=== PATIENT | male | born 1950 | race Two or more races ===

== ENCOUNTER 2017-08-17 18:20 | Inpatient (IN) | payer MEDICAID ==
[2017-08-17 23:50] LABS: ADD MAN DIFF? NO
[2017-08-17 23:51] LABS: BASOPHILS % 0.5 % (0.0-2.0); EOSINOPHILS # 0.4 10^3/ul (0.0-0.5); EOSINOPHILS % 6.3 % (0.0-7.0); HEMOGLOBIN 17.6 g/dl (14.0-18.0); LYMPHOCYTES # 3.3 10^3/ul (0.8-2.9); LYMPHOCYTES % 51.2 % (15.0-51.0); MEAN CORPUSCULAR HEMOGLOBIN 28.3 pg (29.0-33.0); MEAN CORPUSCULAR HGB CONC 35.2 g/dl (32.0-37.0); MEAN CORPUSCULAR VOLUME 80.3 fl (82.0-101.0); MEAN PLATELET VOLUME 9.6 fl (7.4-10.4); MONOCYTE # 0.5 10^3/ul (0.3-0.9); NEUTROPHIL # 2.2 10^3/ul (1.6-7.5); NEUTROPHILS % 33.5 % (39.0-77.0); PLATELET COUNT 173 10^3/UL (140-415); RED BLOOD COUNT 6.23 10^6/ul (4.70-6.10); RED CELL DISTRIBUTION WIDTH 13.4 % (11.5-14.5)
[2017-08-17 23:51] LABS: WHITE BLOOD COUNT 6.5 10^3/ul (4.8-10.8)
[2017-08-18 00:16] LABS: ANION GAP 11 (8-16); BLOOD UREA NITROGEN 26 mg/dl (7-20); CALCIUM 9.6 mg/dl (8.4-10.2); CARBON DIOXIDE 33 mmol/L (21-31); CHLORIDE 98 mmol/L (97-110); CREATININE 1.08 mg/dl (0.61-1.24); GLUCOSE 98 mg/dl (70-220); SODIUM 139 mmol/L (135-144)
[2017-08-18] MEDS ORDERED: ONDANSETRON 4 MG TAB PO (02:00)
[2017-08-18] MEDS ORDERED: NACL 0.9% 3 ML SYG IV (02:00)
[2017-08-18] MEDS ORDERED: ACETAMINOPHEN 325 MG TAB PO (02:00)
[2017-08-18] MEDS: ASPIRIN 325 MG TAB PO (02:00)
[2017-08-18] MEDS: NITROGLYCERIN 2% 1 GM OINT PKT TD (02:00)
[2017-08-18] MEDS ORDERED: morphine 2 MG INJ IV (02:00)
[2017-08-18] MEDS: POTASSIUM CHLORIDE (SR) 20 MEQ TAB PO ×3 (02:01→12:03)
[2017-08-18 07:55] LABS: HEMOGLOBIN A1C 5.4 % (0-5.9)
[2017-08-18 08:02] LABS: MAGNESIUM 1.7 mg/dl (1.7-2.5)
[2017-08-18 08:02] LABS: CHOL/HDL RATIO 5.1 RATIO; CHOLESTEROL 171 mg/dl (100-200); HDL CHOLESTEROL 33 mg/dl (30-78); LDL CHOLESTEROL,CALCULATED 88 mg/dl; TRIGLYCERIDES 248 mg/dl (0-149)
[2017-08-18 08:03] LABS: CREATINE KINASE 106 IU/L (23-200)
[2017-08-18 08:16] LABS: CK INDEX 2.7; CK-MB 2.82 ng/ml (0.0-2.4); TROPONIN-I 0.014 ng/ml (0.00-0.12)
[2017-08-18 08:36] LABS: THYROID STIMULATING HORMONE 0.648 MIU/L (0.465-4.680)
[2017-08-18] MEDS: CHLORTHALIDONE 25 MG TAB PO (09:02)
[2017-08-18] MEDS: LOSARTAN 50 MG TAB PO (09:02)
[2017-08-18] MEDS: METOPROLOL 25 MG TAB PO ×2 (09:03→20:12)
[2017-08-18] MEDS: ASPIRIN (EC) 81 MG TAB PO (09:04)
[2017-08-18 11:15] LABS: ALANINE AMINOTRANSFERASE 42 IU/L (13-69); ALBUMIN 3.7 g/dl (3.3-4.9); ALBUMIN/GLOBULIN RATIO 1.37; ALKALINE PHOSPHATASE 68 IU/L (42-121); ANION GAP 12 (8-16); ASPARTATE AMINO TRANSFERASE 33 IU/L (15-46); BILIRUBIN,INDIRECT 1.1 mg/dl (0-1.1); BILIRUBIN,TOTAL 1.1 mg/dl (0.2-1.3); BLOOD UREA NITROGEN 25 mg/dl (7-20); CALCIUM 9.2 mg/dl (8.4-10.2); CARBON DIOXIDE 28 mmol/L (21-31); CHLORIDE 104 mmol/L (97-110); CREATININE 0.99 mg/dl (0.61-1.24); GLUCOSE 113 mg/dl (70-220); POTASSIUM 3.4 mmol/L (3.5-5.1); SODIUM 141 mmol/L (135-144); TOTAL PROTEIN 6.4 g/dl (6.1-8.1)
[2017-08-18] MEDS ORDERED: SOD CHLORIDE 0.9% 1,000 ML IV (12:00)
[2017-08-18] MEDS: DEXTROSE 5%-0.9% NACL 1,000 ML IV (12:13)
[2017-08-18 12:35] LABS: CREATINE KINASE 106 IU/L (23-200)
[2017-08-18 12:47] LABS: CK INDEX 2.5
[2017-08-18 12:49] LABS: CK-MB 2.66 ng/ml (0.0-2.4); TROPONIN-I < 0.012 ng/ml (0.00-0.12)
[2017-08-18] MEDS: REGADENOSON 0.4 MG/5 ML SYG (15:27)
[2017-08-18] MEDS: MAGNESIUM SULFATE 2 GM/50 ML 50 ML IVPB (17:47)
== END 2017-08-18 20:24 | disposition home or self-care (01) | DRG 313 ==
LOC: MS3 08-18 01:56 → E/R 18:20
DX: R07.9 Chest pain, unspecified (principal); E83.42 Hypomagnesemia; I10 Essential (primary) hypertension; E87.6 Hypokalemia; E78.5 Hyperlipidemia, unspecified; Z95.0 Presence of cardiac pacemaker
CPT/HCPCS: 36415; 71045; 78452; 80048; 80053; 80061; 82550; 82553; 83036; 83735; 84443; 84484; 85025; 93005; 93017; 99285-25

== ENCOUNTER 2017-10-22 11:43 | Emergency (ER) | payer MEDICAID ==
[2017-10-22 14:04] LABS: ADD MAN DIFF? NO
[2017-10-22] MEDS: KETOROLAC 15 MG INJ IV (14:05)
[2017-10-22 14:06] LABS: WHITE BLOOD COUNT 11.3 10^3/ul (4.8-10.8)
[2017-10-22 14:06] LABS: BASOPHILS % 0.4 % (0.0-2.0); EOSINOPHILS # 0.7 10^3/ul (0.0-0.5); EOSINOPHILS % 6.5 % (0.0-7.0); HEMATOCRIT 51.6 % (42.0-52.0); HEMOGLOBIN 17.9 g/dl (14.0-18.0); LYMPHOCYTES % 17.6 % (15.0-51.0); MEAN CORPUSCULAR HEMOGLOBIN 29.1 pg (29.0-33.0); MEAN CORPUSCULAR HGB CONC 34.7 g/dl (32.0-37.0); MEAN CORPUSCULAR VOLUME 83.9 fl (82.0-101.0); MEAN PLATELET VOLUME 8.9 fl (7.4-10.4); MONOCYTE # 0.9 10^3/ul (0.3-0.9); MONOCYTES % 7.9 % (0.0-11.0); NEUTROPHIL # 7.6 10^3/ul (1.6-7.5); PLATELET COUNT 147 10^3/UL (140-415); RED BLOOD COUNT 6.15 10^6/ul (4.70-6.10); RED CELL DISTRIBUTION WIDTH 13.1 % (11.5-14.5)
[2017-10-22] MEDS: SOD CHLORIDE 0.9% 1,000 ML IV (14:06)
[2017-10-22 14:25] LABS: ALANINE AMINOTRANSFERASE 34 IU/L (13-69); ALBUMIN 4.1 g/dl (3.3-4.9); ALBUMIN/GLOBULIN RATIO 1.17; ALKALINE PHOSPHATASE 77 IU/L (42-121); ANION GAP 15 (8-16); ASPARTATE AMINO TRANSFERASE 29 IU/L (15-46); BILIRUBIN,INDIRECT 1.4 mg/dl (0-1.1); BILIRUBIN,TOTAL 1.4 mg/dl (0.2-1.3); BLOOD UREA NITROGEN 24 mg/dl (7-20); CALCIUM 9.7 mg/dl (8.4-10.2); CARBON DIOXIDE 30 mmol/L (21-31); CHLORIDE 104 mmol/L (97-110); CREATININE 1.29 mg/dl (0.61-1.24); GLUCOSE 99 mg/dl (70-220); LIPASE 95 U/L (23-300); POTASSIUM 4.4 mmol/L (3.5-5.1); SODIUM 145 mmol/L (135-144); TOTAL PROTEIN 7.6 g/dl (6.1-8.1)
[2017-10-22 14:38] LABS: TROPONIN-I < 0.012 ng/ml (0.00-0.12)
== END 2017-10-22 16:21 | disposition home or self-care (01) ==
LOC: E/R 11:43
DX: M54.2 Cervicalgia (principal); M25.512 Pain in left shoulder; M25.511 Pain in right shoulder; M79.641 Pain in right hand; M79.642 Pain in left hand; M79.671 Pain in right foot; M79.672 Pain in left foot; I10 Essential (primary) hypertension; Z79.82 Long term (current) use of aspirin
CPT/HCPCS: 36415; 71045; 80053; 83690; 84484; 85025; 93005; 96374; 99285-25

== ENCOUNTER 2017-10-24 16:12 | Inpatient (IN) | payer MEDICAID ==
[2017-10-24 16:53] LABS: ADD MAN DIFF? NO
[2017-10-24] MEDS: SODIUM CHLORIDE 0.9% 1L BAG IV* (16:53)
[2017-10-24] MEDS: PIPER-TAZO 3.375 GM IV (PMX) 100 ML IVPB (16:54)
[2017-10-24 16:55] LABS: WHITE BLOOD COUNT 8.2 10^3/ul (4.8-10.8)
[2017-10-24 16:55] LABS: BASOPHILS % 0.4 % (0.0-2.0); EOSINOPHILS # 0.2 10^3/ul (0.0-0.5); EOSINOPHILS % 2.2 % (0.0-7.0); HEMATOCRIT 51.4 % (42.0-52.0); LYMPHOCYTES # 1.4 10^3/ul (0.8-2.9); LYMPHOCYTES % 16.6 % (15.0-51.0); MEAN CORPUSCULAR HEMOGLOBIN 28.9 pg (29.0-33.0); MEAN CORPUSCULAR VOLUME 82.5 fl (82.0-101.0); MEAN PLATELET VOLUME 8.9 fl (7.4-10.4); MONOCYTE # 0.8 10^3/ul (0.3-0.9); NEUTROPHIL # 5.8 10^3/ul (1.6-7.5); PLATELET COUNT 149 10^3/UL (140-415); RED BLOOD COUNT 6.23 10^6/ul (4.70-6.10); RED CELL DISTRIBUTION WIDTH 12.7 % (11.5-14.5)
[2017-10-24 17:10] LABS: INR 0.94; PROTIME 12.7 Sec (11.9-14.9)
[2017-10-24 17:11] LABS: PARTIAL THROMBOPLASTIN TIME 25.6 Sec (25.0-35.0)
[2017-10-24 17:19] LABS: ALANINE AMINOTRANSFERASE 48 IU/L (13-69); ALBUMIN 4.5 g/dl (3.3-4.9); ALBUMIN/GLOBULIN RATIO 1.09; ALKALINE PHOSPHATASE 88 IU/L (42-121); ANION GAP 17 (8-16); ASPARTATE AMINO TRANSFERASE 41 IU/L (15-46); BILIRUBIN,INDIRECT 0.9 mg/dl (0-1.1); BILIRUBIN,TOTAL 0.9 mg/dl (0.2-1.3); BLOOD UREA NITROGEN 23 mg/dl (7-20); CALCIUM 9.7 mg/dl (8.4-10.2); CARBON DIOXIDE 29 mmol/L (21-31); CHLORIDE 99 mmol/L (97-110); CREATININE 1.18 mg/dl (0.61-1.24); GLUCOSE 99 mg/dl (70-220); POTASSIUM 4.2 mmol/L (3.5-5.1); SODIUM 141 mmol/L (135-144); TOTAL PROTEIN 8.6 g/dl (6.1-8.1)
[2017-10-24 17:30] LABS: TROPONIN-I < 0.012 ng/ml (0.00-0.12)
[2017-10-24] MEDS: LABETALOL HCL 20MG INJ IV (17:43)
[2017-10-24] MEDS: ACETAMINOPHEN 500 MG TAB PO (17:43)
[2017-10-24] MEDS: VANCOMYCIN 1 GM (PMX) 250 ML IVPB (17:44)
[2017-10-24 18:06] LABS: ADD UMIC YES; UR ASCORBIC ACID NEGATIVE (NEGATIVE); UR BACTERIA MANY /HPF (NONE SEEN); UR BILIRUBIN (Dip) NEGATIVE (NEGATIVE); UR BLOOD (Dip) 2+ mg/dL (NEGATIVE); UR CLARITY CLEAR (CLEAR); UR COLOR YELLOW (YELLOW); UR GLUCOSE (Dip) NEGATIVE (NEGATIVE); UR KETONES (Dip) NEGATIVE (NEGATIVE); UR LEUKOCYTE ESTERASE (Dip) 3+ Leu/ul (NEGATIVE); UR NITRITE (Dip) NEGATIVE (NEGATIVE); UR RBC 12 /HPF (0-5); UR TOTAL PROTEIN (Dip) NEGATIVE (NEGATIVE); UR UROBILINOGEN (Dip) NEGATIVE (NEGATIVE); UR WBC 93 /HPF (0-5)
[2017-10-24 18:07] LABS: LACTIC ACID 1.4 mmol/L (0.5-2.0)
[2017-10-24 19:31] LABS: LACTIC ACID 2.3 mmol/L (0.5-2.0)
[2017-10-24] MEDS ORDERED: NACL 0.9% 3 ML SYG IV (21:30)
[2017-10-24] MEDS ORDERED: BISACODYL (EC) 5 MG TAB PO (21:30)
[2017-10-24] MEDS ORDERED: DOCUSATE SODIUM 100 MG CAP PO (21:30)
[2017-10-24] MEDS ORDERED: ONDANSETRON 4 MG INJ IV (21:30)
[2017-10-24 21:56] LABS: LACTIC ACID 1.7 mmol/L (0.5-2.0)
[2017-10-25 01:51] LABS: LACTIC ACID 1.2 mmol/L (0.5-2.0)
[2017-10-25] MEDS: ACETAMINOPHEN 325 MG TAB PO (03:57)
[2017-10-25] MEDS: PIPER-TAZO 3.375 GM IV (PMX) 100 ML IVPB ×5 (05:46→23:24)
[2017-10-25 06:07] LABS: ADD MAN DIFF? NO
[2017-10-25 06:15] LABS: BASOPHILS % 0.1 % (0.0-2.0); EOSINOPHILS # 0.2 10^3/ul (0.0-0.5); EOSINOPHILS % 2.2 % (0.0-7.0); HEMATOCRIT 46.7 % (42.0-52.0); HEMOGLOBIN 16.2 g/dl (14.0-18.0); LYMPHOCYTES # 1.5 10^3/ul (0.8-2.9); LYMPHOCYTES % 20.7 % (15.0-51.0); MEAN CORPUSCULAR HEMOGLOBIN 29.1 pg (29.0-33.0); MEAN CORPUSCULAR HGB CONC 34.7 g/dl (32.0-37.0); MEAN PLATELET VOLUME 8.9 fl (7.4-10.4); MONOCYTE # 0.7 10^3/ul (0.3-0.9); MONOCYTES % 9.8 % (0.0-11.0); NEUTROPHIL # 4.9 10^3/ul (1.6-7.5); NEUTROPHILS % 66.7 % (39.0-77.0); PLATELET COUNT 148 10^3/UL (140-415); RED BLOOD COUNT 5.56 10^6/ul (4.70-6.10); RED CELL DISTRIBUTION WIDTH 12.8 % (11.5-14.5)
[2017-10-25 06:15] LABS: WHITE BLOOD COUNT 7.4 10^3/ul (4.8-10.8)
[2017-10-25 06:46] LABS: ALANINE AMINOTRANSFERASE 53 IU/L (13-69); ALBUMIN 3.6 g/dl (3.3-4.9); ALBUMIN/GLOBULIN RATIO 1.09; ALKALINE PHOSPHATASE 91 IU/L (42-121); ANION GAP 19 (8-16); ASPARTATE AMINO TRANSFERASE 53 IU/L (15-46); BILIRUBIN,INDIRECT 0.9 mg/dl (0-1.1); BILIRUBIN,TOTAL 0.9 mg/dl (0.2-1.3); BLOOD UREA NITROGEN 17 mg/dl (7-20); CALCIUM 8.8 mg/dl (8.4-10.2); CARBON DIOXIDE 21 mmol/L (21-31); CHLORIDE 109 mmol/L (97-110); GLUCOSE 149 mg/dl (70-220); POTASSIUM 3.8 mmol/L (3.5-5.1); SODIUM 145 mmol/L (135-144); TOTAL PROTEIN 6.9 g/dl (6.1-8.1)
[2017-10-25] MEDS: METOPROLOL 25 MG TAB PO (08:14)
[2017-10-25] MEDS: ASPIRIN (EC) 81 MG TAB PO (08:14)
[2017-10-25] MEDS: traMADol 50 MG TAB PO ×3 (08:14→21:07)
[2017-10-25] MEDS: LOSARTAN 25 MG TAB PO (08:15)
[2017-10-26] MEDS: PIPER-TAZO 3.375 GM IV (PMX) 100 ML IVPB ×2 (05:52→12:29)
[2017-10-26] MEDS: ASPIRIN (EC) 81 MG TAB PO (09:02)
[2017-10-26] MEDS: LOSARTAN 25 MG TAB PO (09:02)
[2017-10-26] MEDS: traMADol 50 MG TAB PO ×2 (09:03→12:29)
[2017-10-26] MEDS: METOPROLOL 25 MG TAB PO (09:03)
[2017-10-26] MEDS: LEVOFLOXACIN 500 MG TAB PO (16:16)
[2017-10-26 19:02] LABS: PSA, FREE 1.9 ng/mL
== END 2017-10-26 16:43 | disposition home or self-care (01) | DRG 872 ==
LOC: TEL 20:22 → E/R 16:12
DX: A41.9 Sepsis, unspecified organism (principal); N39.0 Urinary tract infection, site not specified; I16.0 Hypertensive urgency
CPT/HCPCS: 36415; 71045; 80053; 81001; 83605; 84153; 84154; 84484; 85025; 85610; 85730; 87040; 87086; 93005; 96374; 96375; 96376; 99291-25

== ENCOUNTER 2018-06-16 13:38 | Emergency (ER) | payer MEDICAID | END 2018-06-16 15:26 | disposition home or self-care (01) | LOC: FTE 13:38 | DX: M06.861 Other specified rheumatoid arthritis, right knee (principal); M06.862 Other specified rheumatoid arthritis, left knee; M25.561 Pain in right knee; I10 Essential (primary) hypertension; Z79.82 Long term (current) use of aspirin; Z95.0 Presence of cardiac pacemaker | CPT/HCPCS: 73562; 73562-50; 93970; 99284-25 ==

== ENCOUNTER 2018-08-21 17:09 | Emergency (ER) | payer MEDICAID ==
[2018-08-21 17:54] LABS: ADD MAN DIFF? NO
[2018-08-21 18:17] LABS: INR 0.89; PROTIME 12.1 Sec (11.9-14.9); PT RATIO 0.9
[2018-08-21 18:21] LABS: ALANINE AMINOTRANSFERASE 35 IU/L (13-69); ALBUMIN 4.4 g/dl (3.3-4.9); ALKALINE PHOSPHATASE 76 IU/L (42-121); ANION GAP 7 (5-13); ASPARTATE AMINO TRANSFERASE 38 IU/L (15-46); BILIRUBIN,INDIRECT 0.8 mg/dl (0-1.1); BILIRUBIN,TOTAL 0.8 mg/dl (0.2-1.3); BLOOD UREA NITROGEN 28 mg/dl (7-20); CALCIUM 10.2 mg/dl (8.4-10.2); CARBON DIOXIDE 36 mmol/L (21-31); CHLORIDE 97 mmol/L (97-110); CREATININE 1.15 mg/dl (0.61-1.24); Estimated GFR > 60 mL/min (>60); GLUCOSE 101 mg/dl (70-220); POTASSIUM 4.3 mmol/L (3.5-5.1); SODIUM 140 mmol/L (135-144); TOTAL PROTEIN 8.4 g/dl (6.1-8.1)
[2018-08-21 18:32] LABS: B-TYPE NATRIURETIC PEPTIDE 155 PG/ML (0-125); TROPONIN-I 0.029 ng/ml (0.000-0.120)
[2018-08-21 19:20] LABS: BASOPHILS % 0.5 % (0.0-2.0); EOSINOPHILS # 0.7 10^3/ul (0.0-0.5); HEMATOCRIT 55.5 % (42.0-52.0); HEMOGLOBIN 19.1 g/dl (14.0-18.0); LYMPHOCYTES # 3.4 10^3/ul (0.8-2.9); LYMPHOCYTES % 38.5 % (15.0-51.0); MEAN CORPUSCULAR HEMOGLOBIN 28.3 pg (29.0-33.0); MEAN CORPUSCULAR HGB CONC 34.4 g/dl (32.0-37.0); MEAN CORPUSCULAR VOLUME 82.2 fl (82.0-101.0); MEAN PLATELET VOLUME 9.5 fl (7.4-10.4); MONOCYTE # 0.7 10^3/ul (0.3-0.9); MONOCYTES % 7.9 % (0.0-11.0); NEUTROPHILS % 44.5 % (39.0-77.0); PLATELET COUNT 209 10^3/UL (140-415); RED BLOOD COUNT 6.75 10^6/ul (4.70-6.10); RED CELL DISTRIBUTION WIDTH 12.7 % (11.5-14.5)
[2018-08-21 19:20] LABS: WHITE BLOOD COUNT 8.9 10^3/ul (4.8-10.8)
[2018-08-21] MEDS: SOD CHLORIDE 0.9% 1,000 ML IV (19:57)
== END 2018-08-21 21:04 | disposition home or self-care (01) ==
LOC: E/R 17:09
DX: I10 Essential (primary) hypertension (principal); E86.0 Dehydration; E87.3 Alkalosis; Z79.82 Long term (current) use of aspirin; Z95.0 Presence of cardiac pacemaker
CPT/HCPCS: 36415; 71045; 80053; 83880; 84484; 85025; 85610; 93005; 99285-25